=== PATIENT | female | born 1970 | race African-American/Black ===

== ENCOUNTER 2023-11-17 03:02 | Emergency (ER) | payer OTHER, SELFPAY ==
[2023-11-17 03:38] LABS: #Basophils 0.1 thou/uL (0.0-0.2); #Eosinphils 0.2 thou/uL (0.0-0.7); #Lymphocytes 2.3 thou/uL (1.20-3.40); #Monocytes 0.4 thou/uL (0.11-0.59); #Neutrophils 2.2 thou/uL (1.40-6.50); %Basophils 1.1 % (0.0-1.0); %Eosinophils 3.4 % (0.0-10.0); %Lymphocytes 44.7 % (21.0-51.0); %Monocytes 7.5 % (0.0-10.0); %Neutrophils 43.4 % (42.0-75.0); Hematocrit 34.9 % (36.0-47.0); Hemoglobin 11.7 g/dL (12.0-16.0); Mean Corpuscular HGB CONC 33.5 g/dL (32.0-36.0); Mean Corpuscular Hemoglobin 32.4 pg (27.0-31.0); Mean Corpuscular Volume 96.7 fl (78.0-98.0); Mean Platelet Volume 6.4 fL (7.4-10.4); Platelet Count 187 10x3/uL (130-400); RBC Distribution Width 13.2 % (11.5-14.5); Red Blood Cell (RBC) Count 3.61 mill/uL (4.20-5.40); White Blood Cell (WBC) Count 5.2 10x3/uL (4.8-10.8)
[2023-11-17 03:52] LABS: ALT (SGPT) 44 U/L (8-55); AST (SGOT) 82 U/L (5-34); Alkaline Phosphatase 107 U/L (40-110); Anion Gap 16 mmol/L (10-20); BUN (Urea Nitrogen) 7 mg/dL (9.8-20.1); Bilirubin, Total 0.4 mg/dL (0.2-1.2); Calc. Creatinine Clearance 0 mL/min (70-130); Calcium 9.1 mg/dL (7.8-10.44); Carbon Dioxide 22 mmol/L (22-29); Chloride 106 mmol/L (98-107); Estimated GFR 94; Globulin 4.6 g/dL (2.4-3.5); Glucose 88 mg/dL (70-105); Potassium 3.5 mmol/L (3.5-5.1); Protein, Total 8.6 g/dL (6.0-8.3); Sodium 140 mmol/L (136-145)
[2023-11-17] MEDS ORDERED: methylPREDNISolone Sod Succ/PF 125 MG/2 ML VIAL ONE (04:13)
[2023-11-17 04:16] LABS: Bilirubin Negative (Negative); Blood, Urine Trace (Negative); Clarity Clear (Clear); Glucose, Urine (Dipstick) Negative (Negative); Ketone, Urine Negative (Negative); Leukocyte Large (Negative); Nitrite Positive (Negative); Protein, Urine (Dipstick) Negative (Neg-Trace); Urobilinogen 0.2 mg/dL (Less than 2)
[2023-11-17 04:24] LABS: Bacteria/HPF 2+ HPF (None Seen); CAUTI Indications for Culture Dysuria,urgency,freq; RBC/HPF None Seen HPF (0-3); Squamous Epithelial 0-3 HPF (0-3); WBC/HPF 21-50 HPF (0-3)
[2023-11-17 04:28] LABS: Urine Culture Reflex Yes Yes
[2023-11-17] MEDS ORDERED: Cephalexin 250 MG CAP ONE (04:34)
== END 2023-11-17 04:59 | disposition home or self-care (01) ==
LOC: BURERS 03:02
DX: J45.901 Unspecified asthma with (acute) exacerbation (principal); N39.0 Urinary tract infection, site not specified; I10 Essential (primary) hypertension
CPT/HCPCS: 71045; 80053; 81001; 83880; 85025; 87077; 87086; 87186; 96374; J2930

== ENCOUNTER 2024-07-12 18:41 | Emergency (ER) | payer OTHER ==
[~2024-07-12 18:41] MED LIST: Iopamidol 370 76% 100 ML VIAL ONE
[2024-07-12] MEDS ORDERED: Ondansetron PF 4 MG/2 ML Vial ONE (18:54)
[2024-07-12 19:19] LABS: Hematocrit 37.1 % (36.0-47.0); Hemoglobin 12.8 g/dL (12.0-16.0); Mean Corpuscular HGB CONC 34.5 g/dL (32.0-36.0); Mean Corpuscular Hemoglobin 32.8 pg (27.0-31.0); Mean Platelet Volume 6.5 fL (7.4-10.4); Platelet Count 276 10x3/uL (130-400); RBC Distribution Width 11.9 % (11.5-14.5); Red Blood Cell (RBC) Count 3.91 mill/uL (4.20-5.40); White Blood Cell (WBC) Count 5.1 10x3/uL (4.8-10.8)
[2024-07-12 19:23] LABS: BHCG - Serum Negative (NEGATIVE); Pregs Control Background? CLEAR/WHITE (CLR/WHITE); Pregs Control Bar Appear? YES (CONTROL BAR)
[2024-07-12 19:26] LABS: Bilirubin Negative (Negative); Blood, Urine Trace (Negative); Clarity Hazy (Clear); Glucose, Urine (Dipstick) Negative (Negative); Ketone, Urine Negative (Negative); Leukocyte Small (Negative); Nitrite Negative (Negative); Protein, Urine (Dipstick) Negative (Neg-Trace); Specific Gravity, Urine 1.004 (1.002-1.036); Urobilinogen 0.2 mg/dL (Less than 2); pH, Urine 5.5 (5.0-9.0)
[2024-07-12 19:31] LABS: ALT (SGPT) 121 U/L (8-55); AST (SGOT) 322 U/L (5-34); Albumin 3.9 g/dL (3.5-5.0); Alcohol 346.9 mg/dL (Less than 10); Alkaline Phosphatase 141 U/L (40-110); Anion Gap 19 mmol/L (10-20); BUN (Urea Nitrogen) 7 mg/dL (9.8-20.1); Bilirubin, Total 0.4 mg/dL (0.2-1.2); Calc. Creatinine Clearance 0 mL/min (70-130); Calcium 9.4 mg/dL (7.8-10.44); Carbon Dioxide 21 mmol/L (22-29); Chloride 106 mmol/L (98-107); Estimated GFR 95; Globulin 5.3 g/dL (2.4-3.5); Glucose 84 mg/dL (70-105); Potassium 3.7 mmol/L (3.5-5.1); Protein, Total 9.2 g/dL (6.0-8.3); Sodium 142 mmol/L (136-145)
[2024-07-12 19:32] LABS: Acetaminophen Less than 10 mcg/mL (Less than 10); Alcohol 343.8 mg/dL (Less than 10); Lipase 179 U/L (8-78); Lymphocytes 59 % (21-51); MDiff Complete? YES; Monocytes 7 % (0-10); Neutrophil 34 % (42-75); Platelet Adequacy Comment Appears Adequate; Salicylate Less than 8.0 mg/dL (Less than 8.0)
[2024-07-12 19:35] LABS: Bacteria/HPF 3+ HPF (None Seen); CAUTI Indications for Culture Pregnancy; RBC/HPF 0-3 HPF (0-3); Squamous Epithelial 0-3 HPF (0-3); Yeast-Budding Rare HPF (None Seen)
[2024-07-12 19:37] LABS: Urine Culture Reflex Yes Yes
[2024-07-12] MEDS ORDERED: cefTRIAXone (ROCEPHIN) 1 GM VIAL ONE (20:34)
[2024-07-12] MEDS ORDERED: Ketorolac Tromethamine 30 MG (1 mL) VIAL ONE (20:40)
== END 2024-07-12 21:32 | disposition short-term general hospital (02) ==
LOC: BURERS 18:41
DX: N39.0 Urinary tract infection, site not specified (principal); F10.129 Alcohol abuse with intoxication, unspecified; R93.5 Abnormal findings on diagnostic imaging of other abdominal regions, including retroperitoneum; R74.8 Abnormal levels of other serum enzymes; R79.89 Other specified abnormal findings of blood chemistry; E78.5 Hyperlipidemia, unspecified; I10 Essential (primary) hypertension; Z79.899 Other long term (current) drug therapy; Z79.51 Long term (current) use of inhaled steroids
CPT/HCPCS: 36415; 74177; 80053; 80307; 81001; 83690; 84703; 85025; 87077; 87086; 87186; 96361; 96374; 96375; J0696; J1885; J2405; Q9967

== ENCOUNTER 2025-03-25 21:21 | Emergency (ER) | payer MEDICAID, OTHER ==
[2025-03-25] MEDS ORDERED: HYDROcodone/Acetaminophen 5/325 mg Tablet ONE (21:43)
[2025-03-25] MEDS ORDERED: predniSONE 20 MG TAB ONE (21:43)
== END 2025-03-25 22:02 | disposition home or self-care (01) ==
LOC: BURERS 21:21
DX: H60.501 Unspecified acute noninfective otitis externa, right ear (principal); J44.9 Chronic obstructive pulmonary disease, unspecified; I10 Essential (primary) hypertension
CPT/HCPCS: 96372; 99283; J0692; J7512